=== PATIENT | male | born 1985 | race Caucasian/White ===

== ENCOUNTER 2025-01-31 17:23 | Emergency (ER) | payer OTHER ==
[2025-01-31 17:42] VITALS: BP 121/78; PULSE 59; RESP 18; TEMP 98.2; BMI 32.7
== END 2025-01-31 18:26 | disposition home or self-care (01) ==
LOC: FER 17:23
DX: S61.213A Laceration without foreign body of left middle finger without damage to nail, initial encounter (principal); W26.0XXA Contact with knife, initial encounter
CPT/HCPCS: 99282-25